=== PATIENT | male | born 1950 | race Caucasian/White ===

== ENCOUNTER → 2021-10-29 | Outpatient (CLI) | payer OTHER, MEDICARE ==
[~2021-10-29] MED LIST: ALBUTEROL2.5 MG/0.1 INH; ALLOPURINOL 30300 M1 PO; AMBIEN 10 MG TA10 MG PO; AMLODIPINE BESY10 MG PO; ASPIRIN EC81 M1 PO; ASPIRIN81 M2 PO; ATENOLOL 100MG100 M2 PO; BENICAR40 MG PO; BUDEPRION SR150 MG PO; CARVEDILOL6.25 MG PO; CENTRUM SILVER1 EAC4 PO; CLONAZEPAM 1 MG1 M1 PO; HYDROCODONE-AP1 EAC6 PO; LEXAPRO20 MG PO; SYMBICORT80 MCG/4.1 INH; TIZANIDINE HCL4 MG PO
== END ==
LOC: SJCVCIMAG 10-23 11:05
PROVIDERS: ATTEND Internal Medicine
DX: R94.31 Abnormal electrocardiogram [ECG] [EKG] (principal); I45.4 Nonspecific intraventricular block; I49.3 Ventricular premature depolarization; I11.9 Hypertensive heart disease without heart failure; I35.1 Nonrheumatic aortic (valve) insufficiency; I35.8 Other nonrheumatic aortic valve disorders; I25.10 Atherosclerotic heart disease of native coronary artery without angina pectoris; I71.2 Thoracic aortic aneurysm, without rupture; I71.4 Abdominal aortic aneurysm, without rupture; I44.7 Left bundle-branch block, unspecified; E78.5 Hyperlipidemia, unspecified; J43.2 Centrilobular emphysema; K80.20 Calculus of gallbladder without cholecystitis without obstruction; F41.9 Anxiety disorder, unspecified; R51.9 Headache, unspecified; K80.80 Other cholelithiasis without obstruction; E78.00 Pure hypercholesterolemia, unspecified; G47.00 Insomnia, unspecified; F17.200 Nicotine dependence, unspecified, uncomplicated; Z79.899 Other long term (current) drug therapy; Z88.0 Allergy status to penicillin; Z88.8 Allergy status to other drugs, medicaments and biological substances